=== PATIENT | female | born 1950 | race Caucasian/White ===

== ENCOUNTER 2019-06-12 00:36 | Day surgery (SDC) | payer OTHER, SELFPAY ==
[2019-05-01 11:47] VITALS: BMI 22.6
--- NOTE | 2019-05-16 09:04 | PC.NURSE ---
patient states hx unchanged. medications unchanged.
--- NOTE | 2019-05-30 09:52 | PC.NURSE ---
SPOKE TO PT. STATES NO CHANGE IN HEALTH HX FROM 05/01/19.
--- NOTE | 2019-06-11 15:07 | HP_ITS ---
DATE OF SERVICE: 06/12/2019 PREOPERATIVE DIAGNOSES: Basal cell carcinoma of the left upper cutaneous lip and ulcerated nodule on the right side of nose. HISTORY: The patient presented without biopsy, accompanied by her surgeon , for evaluation of the neoplasm on the left upper cutaneous lip. This is an area that seems to exceed a centimeter in diameter and appears that there is some indurated tissue around this suggesting dermal expansion. This mass does not alter the function of the lip. They realize it needs to be removed and one treatment option could be radiation therapy. My recommendation is for excision of this and we have spent some time talking about some of the problems involved with the reconstruction of this. This could be done by skin graft, of course split thickness or full-thickness graft. It could be done with a rotation flap and could be done with advancement flap. They are aware that this may alter her appearance and may alter her function, may result in some numbness. While she was in the office, we noted a small pink nodule on the right side of her nose near the medial orbit. This is just 3 mm, has a crusted surface and we are planning excision of that to be done with permanent section due to a small size. ALLERGIES: SHE HAS NO KNOWN ALLERGIES TO MEDICATION. MEDICATIONS: Current medicines include lisinopril. SURGICAL HISTORY: She has not had any other significant surgeries. She is not followed by any specialist. She is a nonsmoker. REVIEW OF SYSTEMS: Otherwise, negative. FAMILY HISTORY: Noncontributory. SOCIAL HISTORY: She lives in [place]. She is to [place]. PHYSICAL EXAMINATION: GENERAL: She is alert and informative. She is 5 feet 4 inches, 133 pounds. HEENT: Reveals the site as mentioned above. This is almost the size of a ronny on the cutaneous lip, not involving the white roll nor the alar base. There is no palpable adenopathy. There are no intraoral lesions. Also noted is the 3 mm red nodule on the right side of the nose near the right infraorbital rim. CHEST: Clear to auscultation. HEART: Regular rate and rhythm by palpation. ABDOMEN: Soft, nontender. EXTREMITIES: Normal. ASSESSMENT: Basal cell carcinoma of the left upper lip by my punch biopsy and neoplasm unspecified behavior of the right side of the nose, 3 mm. PLAN: Excision of both with frozen section on the larger lesion and closure as indicated to include possibly a skin graft rotation or advancement flap. This will be done under general anesthesia. D I MT: Rylan MCCONNELL
[2019-06-12] VITALS (7 sets, daily range): BP systolic 140–178; BP diastolic 47–88; PULSE 65–84; RESP 15–19; TEMP 36.2–36.6; O2SAT 95–100; BMI 23.1
--- NOTE | 2019-06-12 06:32 | P.PNAN_ITS ---
Anes - Initial Pre Proc Eval Procedure: Operation Date: 06/12/19 07:30 Proposed Procedures p Excision Basal Cell Carcinoma Left Upper Cutaneous Lip With Frozen Section And Local Tissue Transfer Or Full Thickness Skin Graft, Excision Ulcerated Nodule Right Side Of Nose With Permanent Section - Darrel Dill MD Date/Time: 06/12/19 06:32 Surgeon: Darrel Dill MD Pre Op Diagnosis: BCC Lt Upper Cutaneous Lip/ Ulcerated Nodule Nose Patient Data Age: 68 Gender: F Height: 1.63 m Weight: 59.95 kg Allergies Allergy/AdvReac Type Severity Reaction Status Date / Time No Known Allergies Allergy Verified 05/30/19 09:50 Home Medications Medication Instructions Recorded Confirmed Type lisinopril 20 mg PO DAILY 05/01/19 05/30/19 History kmcyibth-fho-jdop-FA-lutein 1 tablet PO DAILY 05/01/19 05/30/19 History [Centrum Silver Women] Patient hx anesthesia problems: none Family hx anesthesia problems: none [facility] [place] Past Medical History Medical History (Updated 06/12/19 @ 06:33 by Caesar Cotto MD) CVA (cerebral vascular accident) 1987 PRE CHILDBIRTH HTN (hypertension) Melanoma Anes - Eval Final PreProcedure Day of Procedure 06/12/19 06:32 Patient weight: normal Heart: regular rate and rhythm Lungs: clear to auscultation and normal air movement Airway: Mallampati scale class II Neurological: alert and oriented Last oral intake: >/= 8 hours ASA classification: III Emergent: no Anesthetic plan: proceed Anesthesia type and monitoring: general GIVS Informed Consent: The patient's anesthetic plan and its attendant risks and benefits were discussed with the patient/family/POA. Questions were solicited and answers provided to the satisfaction of the patient/family/POA.
[2019-06-12] MEDS: LACTATED RINGERS 1,000 ML 30 ML IV CONT ×2 (06:45→10:51)
--- NOTE | 2019-06-12 07:16 | WPDHPUPDATE1 ---
History and Physical Update Update Date/Time: 06/12/19 07:16 History and Physical has been reviewed, including an updated exam of the patient. There are NO changes in the patient's condition. Risks, benefits, and alternatives have been discussed and questions answered. Patient agrees to proceed with procedure.
[2019-06-12] MEDS: ceFAZolin 2 GM/D5W 50 ML 2 GM/50 ML BAG IVPB (07:33)
[2019-06-12] MEDS: LIDO 1%/EPINEPHRINE 1:100,000 20 ML VIAL INFILTRATE (08:15)
--- NOTE | 2019-06-12 09:29 | PM.OP ---
Procedure Note - Brief Procedure Note - Brief Date of procedure: 06/12/19 Pre-op diagnosis: BCC Lt Upper Cutaneous Lip/ Ulcerated Nodule Nose Post-op diagnosis: same Procedure performed: 3.0 cm excision of BCC left upper lip with FS x 4 and LTT 15 sq cm . 1.0 cm exscision of cutaneous nodule right side of nose with PS and intermediate repair 1.0 cm. Anesthesia: GETA Surgeon: Darrel Dill MD Estimated blood loss (mL): 10 Drains: No Packing: No Pathology: yes Complications: No immediate complications Condition: stable Disposition: PACU
--- NOTE | 2019-06-12 10:52 | PM.PROC ---
Procedure Note - Detailed Date of procedure: 06/12/19 Pre-op diagnosis: BCC Lt Upper Cutaneous Lip/ Ulcerated Nodule Nose Post-op diagnosis: same Procedure performed: 3 cm excision of basal cell carcinoma of the left upper lip with frozen section 4 and local tissue transfer 15 sq cm. 1 cm excision of cutaneous nodule of the right upper nose with permanent section and intermediate repair 1 cm Description of procedure: The patient is to sites were marked in the holding area. She was taken to the operating room and placed supine on the operating table. Time-out was held and confirmed she was given nasal tracheal intubation and general anesthesia. The entire space was prepped and draped in the usual fashion. The site on the lip was carefully marked with a pen and locally infiltrated with 1% lidocaine with epinephrine. The site on the right upper nose was also marked and infiltrated. At the upper lip site an incision was made around the mass and carried deep into the subcutaneous tissue with the intention to remove muscle fascia. In doing this we encountered white granular tissue suggesting deep invasion of this tumor and we took that as well. The specimen was marked with sutures for orientation and sent to pathology. The pathologist reported that 3 sites including the entire base of this wound were positive for tumor. Appropriate 3 excisions were carried out including the entire base of the wound. This of course revealed multiple salivary glands and we were very close to the mucosa. Much of the muscle and traversing nerves were sacrificed. While the subsequent frozen sections were out, we undertook resection of the lesion on the right side of the nose. This appears to be a basal cell carcinoma, it is nodular and lucent. The wound was closed with intradermal 4-0 Vicryl and interrupted 6 0 nylon. That tissue was sent for permanent section. The pathologist indicated that an additional margin was focally positive with tumor and a hair follicle. And we resected that area at 11:00 o'clock. That tissue was sent for permanent section.. The reconstruction involved attempt to reanastomose the muscle that came and diagonal the top edge of the wound we connected that to the margin of the orbicularis that was easily brought up to medial. A rotation advancement skin flap was designed on the left anterior cheek this was elevated and rotated into the defect area. This was very carefully inset and tailored. Great attention was paid to the affects this had on the left nasal ala and on the left upper lip. Insetting was done with 4-0 Vicryl and 6 0 nylon. The patient tolerated this procedure well. She was discharged from the operating room in stable condition. She is discharged home with instructions in wound care and follow-up in a prescription for hydrocodone 05 10. And cephalexin 500 mg 12. Surgeon: Darrel Dill MD
== END 2019-06-12 12:15 | disposition home or self-care (01) ==
PROVIDERS: PCP Family Medicine; Visit Provider Plastic Surgery
PROC: (CPT 14061; principal; 2019-06-12 07:30)
DX: C44.01 Basal cell carcinoma of skin of lip (principal); C44.311 Basal cell carcinoma of skin of nose; I10 Essential (primary) hypertension; Z86.73 Personal history of transient ischemic attack (TIA), and cerebral infarction without residual deficits; Z85.820 Personal history of malignant melanoma of skin
CPT/HCPCS: 14061; 11641; 12051; 88305; 88331; 88332; A9270; J0690; J1100; J2250; J2370; J2405; J2704; J3010; J7120